=== PATIENT | female | born 1965 | race Two or more races ===

== ENCOUNTER 2024-12-27 15:51 | Emergency (ER) | payer OTHER ==
[~2024-12-27] VITALS: Ht 157.5 cm; Wt 86.3 kg
--- NOTE | 2024-12-27 16:34 | ED.PDOC ---
Musculoskeletal HPI Comments 59y F who presents to the ED via EMS for chief complaint of upper extremity pain. Pt states she was walking up very large curb and states he tripped and fell. Pt states she used her R arm to help break her fall. Pt states he landed on L arm but denies hitting her head and no associated loss of consciousness. EMS arrived and pt R arm was placed in splint and pt was given IV fentanyl en route to the ED. Pt in the ED, noted to have + pulses and is able to move her fingers on her R hand. Pt otherwise has noted stable vitals. Pt otherwise denies any other symptoms at this time. Chief Complaint: Upper Extremity Time Seen by MD: 16:32 Primary Care Provider: AGUILA Rodriguez Notes: Nurses Notes Allergies: Coded Allergies: NO KNOWN ALLERGIES (Unverified , 12/27/24) Home Meds Active Scripts Gabapentin (Once-Daily) (Gabapentin) 300 Mg Tab, 300 MG PO Q6HP PRN for 10 Days, #40 TAB Prov:HAO GOLD MD 12/27/24 Meloxicam (Meloxicam) 7.5 Mg Tab, 1 TAB PO DAILY PRN for 20 Days, #20 TAB 2 Refills Prov:HAO GOLD MD 12/27/24 Information Source: Patient Mode of Arrival: EMS Brought in by: EMS Past Medical History PAST MEDICAL HISTORY: Denies Surgical History: Denies all surgeries EMBEDDED NURSE History: Other Family History Family History: Reviewed,noncontributory to illness Social History Smoker: Non-Smoker Alcohol: Denies ETOH Use Drugs: Denies Drug Use Lives In: Home Constitutional: denies: chills, diaphoresis, fatigue, fever, malaise, sweats, weakness, others EENTM: denies: blurred vision, double vision, ear bleeding, ear discharge, ear drainage, ear pain, ear ringing, eye pain, eye redness, hearing loss, mouth pa in, mouth swelling, nasal discharge, nose bleeding, nose congestion, nose pain, photophobia, tearing, throat pain, throat swelling, voice changes, others Respiratory: denies: cough, hemoptysis, orthopnea, SOB at rest, shortness of breath, SOB with excertion, stridor, wheezing, others Cardiovascular: denies: chest pain, dizzy spells, diaphoresis, Dyspnea on exertion, edema, irregular heart beat, left arm pain, lightheadedness, palpitations, PND, syncope, others Gastrointestinal: denies: abdomen distended, abdominal pain, blood streaked bowels, constipated, diarrhea, dysphagia, difficulty swallowing, hematemesis, melena, nausea, poor appetite, poor fluid intake, rectal bleeding, rectal pain, vomiting, others Genitourinary: denies: abnormal vagina bleeding, burning, dyspareunia, dysuria, flank pain, frequency, hematuria, incontinence, pain, , vagina discharge, urgency, others Neurological: denies: dizziness, fainting, headache, left sided numbness, left sided weakness, numbness, paresthesia, pre-existing deficit, right sided numbness, right sided weakness, seizure, speech problems, tingling, tremors, weakness, others Musculoskeletal: reports: joint pain; denies: back pain, gout, joint swelling, muscle pain, muscle stiffness, neck pain, others Integumetry: denies: bruises, change in color, change in hair/nails, dryness, laceration, lesions, lumps, rash, wounds, others Allergic/Immunocompromised: denies: Difficulty Healing, Frequent Infections, Hives, Itching, others Hematologic/Lymphatic: denies: anemia, blood clots, easy bleeding, easy bruisi ng, swollen glands, others Endocrine: denies: excessive hunger, excessive sweating, excessive thirst, exce ssive urination, flushing, intolerance to cold, intolerance to heat, unexplained weight gain, unexplained weight loss, others Psychiatric: denies: anxiety, bipolar disorder, depression, hopeless, panic disorder, schizophrenia, sleepless, suicidal, others All Other Systems: Reviewed and Negative Physical Exam General Appearance: Moderate Distress, Normal HEENT: Normal ENT Inspection, Pharynx Normal, TMs Normal Neck: Full Range of Motion, Non-Tender, Normal, Normal Inspection Respiratory: Chest Non-Tender, Lungs Clear, No Accessory Muscle Use, No Respiratory Distress, Normal Breath Sounds Cardiovascular: No Edema, No JVD, No Murmur, No Gallop, Normal Peripheral Pulses, Regular Rate/Rhythm Breast Exam: Deferred Gastrointestinal: No Organomegaly, Non Tender, No Pulsatile Mass, Normal Bowel Sounds, Soft Genitalia: Deferred Pelvic: Deferred Rectal: Deferred Extremities: Swelling, Tender, Other (right elbow swelling and deformity and decreased ROM. 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 Was a procedure done?: Yes Sedation Sedation?: Yes Informed consent obtained: Yes Sedation start time: 18:20 Sedation end time: 18:40 Sedation total time: 20 Reduction Indication: Dislocation Sedation: Consents obtained, Sedation as ordered, Intra-articular, Other (Right elbow) Intra-articular anesthetic susana: No Post-reduction x-ray show: Reduction Informed consent obtained: Yes Risks/benefits/alt described: Yes Differential Diagnosis EXT Differential Diagnosis: Fracture, Sprain, Dislocation, Contusion, Neurovascular injury, Arthritis X-Ray, Labs, Meds, VS Vital Signs Date Time Temp Pulse Resp B/P (MAP) Pulse Ox O2 Delivery O2 Flow Rate FiO2 12/27/24 19:01 69 16 131/66 12/27/24 18:20 94 26 136/80 (98) 97 12/27/24 18:13 70 14 98 2.0 28 80 12 97 76 98 12/27/24 17:58 97.8 76 16 136/63 (87) 93 97.8 12/27/24 17:03 85 16 96 Room Air* 0 21 12/27/24 16:48 68 12 139/82 (101) 98 12/27/24 16:48 68 12 139/82 12/27/24 15:54 97.8 71 18 160/79 (106) 99 Lab Test 12/27/24 17:10 Range/Units White Blood Count 10.0 4.4-10.8 10^3/uL Red Blood Count 4.42 4.0-5.20 10^6/uL Hemoglobin 13.3 12.2-16.2 g/dL Hematocrit 38.6 36.0-46.0 % Mean Corpuscular Volume 87.3 80.0-100.0 fL Mean Corpuscular Hemoglobin 30.1 28.0-32.0 pg Mean Corpuscular Hemoglobin Concent 34.5 32.0-36.0 g/dL Red Cell Distribution Width 13.3 11.8-14.3 % Platelet Count 261 140-450 10^3/uL Mean Platelet Volume 8.5 6.9-10.8 fL Neutrophils (%) (Auto) 72.5 37.0-80.0 % Lymphocytes (%) (Auto) 21.0 10.0-50.0 % Monocytes (%) (Auto) 5.7 0.0-12.0 % Eosinophils (%) (Auto) 0.6 0.0-7.0 % Basophils (%) (Auto) 0.2 0.0-2.0 % Neutrophils # (Auto) 7.2 1.6-8.6 10 ^3/uL Lymphocytes # (Auto) 2.1 0.4-5.4 10 ^3/uL Monocytes # (Auto) 0.6 0-1.3 10 ^3/uL Eosinophils # (Auto) 0.1 0-0.8 10 ^3/uL Basophils # (Auto) 0 0-0.2 10 ^3/uL Nucleated Red Blood Cells 0.0 % Prothrombin Time 10.5 9.3-11.8 sec Prothrombin Time INR 0.99 0.9-1.15 Activated Partial Thromboplast Time 26.5 24.5-34.5 SEC Sodium Level 138 136-145 mmol/L Potassium Level 3.7 3.5-5.1 mmol/L Chloride Level 104 98-107 mmol/L Carbon Dioxide Level 25 20-31 mmol/L Anion Gap 9 5-15 Blood Urea Nitrogen 14 9-23 mg/dL Creatinine 0.93 0.550-1.02 mg/dL Glomerular Filtration Rate Calc 70 >90 mL/min BUN/Creatinine Ratio 15.1 10.0-20.0 Serum Glucose 110 H 74-106 mg/dL Calcium Level 10.0 8.7-10.4 mg/dL Current Medications Medications (Trade) Dose Ordered Sig/Loulou Route Start Time Stop Time Status Last Admin Morphine Sulfate 4 mg ONCE ONCE IV 12/27/24 16:15 12/27/24 16:17 DC 12/27/24 16:48 Ondansetron HCl (Zofran) 4 mg ONCE ONCE IV 12/27/24 16:15 12/27/24 16:17 DC 12/27/24 16:47 Ketamine HCl (Ketalar) 100 mg ONCE ONCE IV 12/27/24 17:00 12/27/24 17:01 DC 12/27/24 18:47 [place] [id number] Ph: [phone] DIAGNOSTIC IMAGING Diagnostic Imaging Report : [id number] Signed PATIENT: MERCEDES HAMILTON ACCT: [id number] UNIT: [id number] : 1965 LOC: ER ROOM / BED: / AGE / SEX: 59 / F ADM STATUS: REG ER SERVICE [id number] ORDERING PHYSICIAN: HAO GOLD MD PROCEDURE(s): RHUM - R HUMERUS XRAY REASON: pain s/p fall ORDER NUMBER(s): [id number], ACCESSION NUMBER(s): [id number] CLINICAL INDICATION: pain s/p fall TECHNIQUE: 3 views of the right humerus were performed. XY R HUMERUS XRAY Comparison: Right forearm radiographs from the same day. FINDINGS/IMPRESSION: : 1. Posterior dislocation of the right elbow with mildly displaced fracture of the distal humeral trochlea and small fracture fragments laterally likely arising from the lateral humeral epicondyle. 2. No fractures are identified about the proximal to mid portions of the right humerus. ATED BY: ANTONI JONES MD DICTATED DATE/TIME: 12/27/241656 SIGNED BY: ANTONI JONES MD SIGNED DATE/TIME: 12/27/241656 CC: [place] [id number] Ph: [phone] DIAGNOSTIC IMAGING Diagnostic Imaging Report : [id number] Signed PATIENT: MERCEDES HAMILTON ACCT: [id number] UNIT: [id number] : 1965 LOC: ER ROOM / BED: / AGE / SEX: 59 / F ADM STATUS: REG ER SERVICE 161 ORDERING PHYSICIAN: HAO GOLD MD PROCEDURE(s): RFOR - R FOREARM XRAY REASON: pain s/p fall ORDER NUMBER(s): [id number], ACCESSION NUMBER(s): [id number] CLINICAL INDICATION: pain s/p fall TECHNIQUE: AP and lateral views of the right forearm were performed. XY R FOREARM XRAY Comparison: Right humerus radiographs from the same day. FINDINGS/IMPRESSION: : 1. Posterior dislocation of the right elbow including radiocapitellar and ulnar trochlear joints. Right humeral radiographs suggested fractures of the distal humeral trochlea and medial epicondyle, although those fractures are not appreciated on the current images. Recommend follow-up radiographs and/or noncontrast CT scan of the right elbow after reduction. 2. Right distal radial metaphyseal fracture and distracted ulnar styloid fracture may be chronic. Recommend formal radiographs of the right wrist for better characterization. ATED BY: ANTONI JONES MD DICTATED DATE/TIME: 12/27/241699 SIGNED BY: ANTONI JONES MD SIGNED DATE/TIME: 12/27/241699 CC: Time of 1ST Reevaluation: 17:05 Reevaluation 1ST: Unchanged Patient Education/Counseling: Diagnosis, Treatment Family Education/Counseling: No Family Present Departure 1 Departure Time of Disposition: 19:00 Impression: Primary Impression: Dislocation of right elbow Additional Impression: Elbow fracture, right Disposition: 01 HOME / SELF CARE / HOMELESS Condition: Stable e-Prescriptions Gabapentin (Once-Daily) (Gabapentin) 300 Mg Tab 300 MG PO Q6HP PRN for 10 Days, #40 TAB Prov: HAO GOLD MD 12/27/24 Meloxicam (Meloxicam) 7.5 Mg Tab 1 TAB PO DAILY PRN for 20 Days, #20 TAB 2 Refills Prov: HAO GOLD MD 12/27/24 Discharged With: Self Critical Care Note Critical Care Time?: No Stability Stability form required: No Heart Score Heart Score: Heart Score Response (Comments) Value History N/A 0 EKG N/A 0 Age N/A 0 Risk Factors N/A 0 Troponin N/A 0 Total 0 I personally scribed for HAO GOLD MD ([email or web address]) on 12/27/24 at 16:34. Electronically submitted by Nakul NGUYEN). I personally scribed for HAO GOLD MD (RICARDO) on 12/27/24 at 17:39. Electronically submitted by Nakul NGUYEN). HAO GOLD MD Dec 27, 2024 16:34
[2024-12-27] MEDS: ONDANSETRON HCL 4 MG/2 ML VIAL IV ONE (16:47)
[2024-12-27] MEDS: MORPHINE SULFATE 4 MG/ML SYR/VIAL IV ONE (16:48)
--- NOTE | 2024-12-27 16:59 | DVH ---
CLINICAL INDICATION: pain s/p fall TECHNIQUE: 3 views of the right humerus were performed. XY R HUMERUS XRAY Comparison: Right forearm radiographs from the same day. FINDINGS/IMPRESSION: : 1. Posterior dislocation of the right elbow with mildly displaced fracture of the distal humeral troc hlea and small fracture fragments laterally likely arising from the lateral humeral epicondyle. 2. No fractures are identified about the proximal to mid portions of the right humerus.
--- NOTE | 2024-12-27 17:02 | DVH ---
CLINICAL INDICATION: pain s/p fall TECHNIQUE: AP and lateral views of the right forearm were performed. XY R FOREARM XRAY Comparison: Right humerus radiographs from the same day. FINDINGS/IMPRESSION: : 1. Posterior dislocation of the right elbow including radiocapitellar and ulnar trochlear joints. Rig ht humeral radiographs suggested fractures of the distal humeral trochlea and medial epicondyle, alth ough those fractures are not appreciated on the current images. Recommend follow-up radiographs and/o r noncontrast CT scan of the right elbow after reduction. 2. Right distal radial metaphyseal fracture and distracted ulnar styloid fracture may be chronic. Rec ommend formal radiographs of the right wrist for better characterization.
[2024-12-27 17:03] VITALS: PULSE 85; RESP 16; O2SAT 96
[2024-12-27 17:56] LABS: Basophils # (auto) 0 10 ^3/uL (0-0.2); Basophils % (auto) 0.2 % (0.0-2.0); Eosinophils # (auto) 0.1 10 ^3/uL (0-0.8); Eosinophils % (auto) 0.6 % (0.0-7.0); Hematocrit 38.6 % (36.0-46.0); Hemoglobin 13.3 g/dL (12.2-16.2); Lymphocytes # (auto) 2.1 10 ^3/uL (0.4-5.4); Mean Corpuscular Hemoglobin 30.1 pg (28.0-32.0); Mean Corpuscular Hgb Conc. 34.5 g/dL (32.0-36.0); Mean Corpuscular Volume 87.3 fL (80.0-100.0); Monocytes # (auto) 0.6 10 ^3/uL (0-1.3); Monocytes % (auto) 5.7 % (0.0-12.0); Neutrophils # (auto) 7.2 10 ^3/uL (1.6-8.6); Neutrophils % (auto) 72.5 % (37.0-80.0); Platelet Count (auto) 261 10^3/uL (140-450); Red Blood Cells 4.42 10^6/uL (4.0-5.20); Red Cell Distribution Width 13.3 % (11.8-14.3)
[2024-12-27 18:10] LABS: Chloride 104 mmol/L (98-107); Potassium 3.7 mmol/L (3.5-5.1); Sodium 138 mmol/L (136-145)
[2024-12-27 18:11] LABS: Anion Gap 9 (5-15); Carbon Dioxide 25 mmol/L (20-31)
[2024-12-27 18:14] LABS: INR 0.99 (0.9-1.15); Partial Thromboplastin Time 26.5 SEC (24.5-34.5); Prothrombin Time 10.5 sec (9.3-11.8)
[2024-12-27] MEDS: PROPOFOL 10 MG/ML 20 ML IV ONE (18:14)
[2024-12-27 18:16] LABS: BUN/Creatinine Ratio 15.1 (10.0-20.0); Blood Urea Nitrogen 14 mg/dL (9-23)
[2024-12-27 18:24] LABS: Glucose 110 mg/dL (74-106)
[2024-12-27] MEDS ORDERED: GABA300T4 PO (18:32)
[2024-12-27] MEDS ORDERED: MELO7.5T7 PO (18:32)
--- NOTE | 2024-12-27 18:36 | DVH ---
CLINICAL INDICATION: post-reduction TECHNIQUE: XY R ELBOW 2V XRAY Comparison: None FINDINGS/IMPRESSION: : Interval reduction of the right elbow joint in near anatomic alignment. Elbow joint effusion. Tiny osseous densities project adjacent to the capitellum and lateral epicondyle which could be tiny fracture fragments.
[2024-12-27] MEDS: KETAMINE 50mg/ML 10ml Vial (500mg/10ml) IV ONE (18:47)
[2024-12-27 19:34] VITALS: BP 125/76; PULSE 98; RESP 16; TEMP 98.2; O2SAT 96
[2024-12-27] MEDS ORDERED: HYDR-4902 PO (19:48)
== END 2024-12-27 19:54 | disposition home or self-care (01) ==
LOC: EDBD 15:51 → ER 16:04
DX: S53.104A Unspecified dislocation of right ulnohumeral joint, initial encounter (principal); S42.494A Other nondisplaced fracture of lower end of right humerus, initial encounter for closed fracture; W01.0XXA Fall on same level from slipping, tripping and stumbling without subsequent striking against object, initial encounter; Y93.89 Activity, other specified; Y92.89 Other specified places as the place of occurrence of the external cause; Y99.8 Other external cause status
CPT/HCPCS: 24600; 36415; 73060; 73070; 73090; 80048; 85025; 85610; 85730; 96374; 96375; 99152; 99285; J2270; J2405; J2704